=== PATIENT | female | born 1930 | race Asian ===

== ENCOUNTER → 2018-06-17 | Outpatient (CLI) | payer MEDICARE, MEDICAID ==
[~2018-06-17] MED LIST: ASPI-1182 PO; DSS100 PO; FOLI1 PO; METF500T6 PO; METO50 PO; OMEP20 PO; PRAV20TA4 PO
[2018-06-17 16:47] LABS: CALCIUM, TOTAL 9.3 mg/dL (8.8-10.5); CREATININE 1.15 mg/dL (0.60-1.30); POTASSIUM 4.1 mmol/L (3.5-5.1)
== END | disposition home or self-care (01) ==
LOC: LABPV 14:06
PROVIDERS: ATTEND Internal Medicine Interventional Cardiology
DX: I48.91 Unspecified atrial fibrillation (principal); M79.609 Pain in unspecified limb; E78.00 Pure hypercholesterolemia, unspecified; I10 Essential (primary) hypertension; E11.9 Type 2 diabetes mellitus without complications; Z95.0 Presence of cardiac pacemaker

== ENCOUNTER 2018-10-05 09:45 | Day surgery (SDC) | payer MEDICARE, MEDICAID ==
[~2018-10-05] VITALS: Ht 154.9 cm; Wt 55.5 kg
[~2018-10-05 09:45] MED LIST changes: +METF-960 PO; -METF500T6 PO
[2018-10-05] MEDS ORDERED: 0.9% SODIUM CHLORIDE 10 ML SYRINGE IVP PRN (10:15)
[2018-10-05] MEDS ORDERED: METOPROLOL TARTRATE 50 MG TABLET PO ONE (10:15)
== END 2018-10-05 11:00 | disposition home or self-care (01) ==
LOC: SURGERY 09:45
PROVIDERS: ATTEND Internal Medicine Interventional Cardiology
DX: I48.91 Unspecified atrial fibrillation (principal); Z53.8 Procedure and treatment not carried out for other reasons; I10 Essential (primary) hypertension; E78.00 Pure hypercholesterolemia, unspecified; E11.9 Type 2 diabetes mellitus without complications; F17.210 Nicotine dependence, cigarettes, uncomplicated; Z79.82 Long term (current) use of aspirin; Z90.49 Acquired absence of other specified parts of digestive tract; Z79.01 Long term (current) use of anticoagulants; Z79.84 Long term (current) use of oral hypoglycemic drugs; Z95.0 Presence of cardiac pacemaker; Z72.89 Other problems related to lifestyle; Z98.890 Other specified postprocedural states; Z79.899 Other long term (current) drug therapy

== ENCOUNTER → 2020-01-25 | Outpatient (CLI) | payer MEDICARE, MEDICAID ==
[~2020-01-25] MED LIST changes: +ASPI-1111 PO; -ASPI-1182 PO; +LIDO5CRE18 TP; -METO50 PO; +ROPI0.257 PO; +UBID100C PO
[2020-01-27 15:07] LABS: QUANTIFERON+, Nil Value 0.03 IU/mL; QUANTIFERON+,Mitogen Value >10.00 IU/mL; QUANTIFERON+,TB1 Antigen Value 0.05 IU/mL; QUANTIFERON, TB GOLD PLUS Negative (Negative)
== END | disposition home or self-care (01) ==
LOC: LABMN 13:02
PROVIDERS: ATTEND Internal Medicine Interventional Cardiology
DX: I48.91 Unspecified atrial fibrillation (principal); R05 Cough; Z95.0 Presence of cardiac pacemaker
CPT/HCPCS: 86480